=== PATIENT | female | born 1950 | race Caucasian/White ===

== ENCOUNTER → 2018-07-02 18:05 | Outpatient (CLI) | payer MEDICARE ==
[2015-02-23 08:47] VITALS: BMI 37.2
[~2018-07-02 18:05] MED LIST: CELEXA40 MG PO; MAXZIDE 75/501 TAB PO; METOPROLOL TART50 MG PO; MULTIPLE VITAMI1 TA1 PO; POTASSIUM99 M1 PO; TRAZODONE HCL50 MG PO; TRILEPTAL300 MG PO; ZYRTEC10 MG PO
== END | disposition home or self-care (01) ==
LOC: D.MAMMO 15:15
DX: Z12.31 Encounter for screening mammogram for malignant neoplasm of breast (principal)

== ENCOUNTER 2021-01-17 13:00 | Outpatient (CLI) | payer MEDICARE ==
[2015-02-23 08:47] VITALS: BMI 37.2
== END 2021-01-17 13:30 | disposition home or self-care (01) ==
LOC: D.MAMMO 13:00
PROVIDERS: ATTEND Family Medicine
DX: Z12.31 Encounter for screening mammogram for malignant neoplasm of breast (principal)